=== PATIENT | male | born 1955 | race Two or more races ===

== ENCOUNTER 2022-08-14 14:10 | Emergency (ER) | payer MEDICARE, MEDICAID ==
[~2022-08-14] VITALS: Ht 180.3 cm; Wt 109.0 kg
[2022-08-14] MEDS ORDERED: ALLOPURINOL 100 MG TAB PO ONE (14:15)
[2022-08-14] MEDS ORDERED: LIDOCAINE 1% (LOCAL ANESTH.) PF 5ml SDV ID ONE (14:15)
[2022-08-14] MEDS ORDERED: HYDROcodone-ACET 10/325MG TAB PO ONE (14:30)
[2022-08-14 14:49] LABS: Basophils # (auto) 0.1 10 ^3/uL (0-0.2); Basophils % (auto) 0.7 % (0.0-2.0); Eosinophils # (auto) 0 10 ^3/uL (0-0.8); Eosinophils % (auto) 0.3 % (0.0-7.0); Hematocrit 37.9 % (41.0-53.0); Hemoglobin 12.4 g/dL (13.5-17.5); Lymphocytes # (auto) 1.8 10 ^3/uL (0.4-5.4); Lymphocytes % (auto) 18.7 % (10.0-50.0); Mean Corpuscular Hemoglobin 26.2 pg (28.0-32.0); Mean Corpuscular Hgb Conc. 32.7 g/dL (32.0-36.0); Mean Corpuscular Volume 80.2 fL (80.0-100.0); Monocytes # (auto) 0.9 10 ^3/uL (0-1.3); Monocytes % (auto) 9.1 % (0.0-12.0); Neutrophils # (auto) 6.8 10 ^3/uL (1.6-8.6); Neutrophils % (auto) 71.2 % (37.0-80.0); Nucleated Red Blood Cells % 0.1 %; Red Blood Cells 4.72 10^6/uL (4.5-5.90); White Blood Cell 9.5 10^3/uL (4.4-10.8)
[2022-08-14] MEDS ORDERED: LIDOCAINE 1% HCL (LOCAL ANESTH.) INJ 20ML MDV ONE (14:51)
[2022-08-14] MEDS ORDERED: LIDOCAINE 1% HCL (LOCAL ANESTH.) INJ 20ML MDV ID ONE (15:00)
[2022-08-14 15:06] LABS: Albumin 3.2 g/dL (3.4-5.0); Calcium 8.8 mg/dL (8.5-10.1); Potassium 3.8 mmol/L (3.5-5.1)
[2022-08-14 15:10] LABS: BUN/Creatinine Ratio 11.2 (10.0-20.0); Bilirubin, Total 0.6 mg/dL (0.2-1.0); Total Protein 7.6 g/dL (6.4-8.2); Uric Acid 10.1 mg/dL (3.5-7.2)
[2022-08-14] MEDS ORDERED: ALL300T PO (15:37)
[2022-08-14 16:18] VITALS: BP 160/66
== END 2022-08-14 16:22 | disposition home or self-care (01) ==
LOC: ER 14:10 → EDBD 14:10 → ER 16:22
DX: M10.9 Gout, unspecified (principal); M25.461 Effusion, right knee; F17.210 Nicotine dependence, cigarettes, uncomplicated
CPT/HCPCS: 20610; 29505; 36415; 80053; 84550; 85025; 99283; J2001

== ENCOUNTER 2022-08-18 13:25 | Emergency (ER) | payer MEDICARE, MEDICAID ==
[~2022-08-18] VITALS: Ht 180.3 cm; Wt 118.8 kg
[~2022-08-18 13:25] MED LIST: ALL300T PO
[2022-08-18 14:23] VITALS: BP 159/86
[2022-08-18] MEDS ORDERED: KETOROLAC TROMETH 60MG/2ML VIAL IM ONE (15:00)
[2022-08-18] MEDS ORDERED: DexAMETHasone SOD PHOS 10MG/1ML VIAL INJ IM ONE (15:00)
[2022-08-18] MEDS ORDERED: TRAM50TA2 PO (15:46)
[2022-08-18] MEDS ORDERED: PRED20TA2 PO (15:46)
== END 2022-08-18 15:55 | disposition home or self-care (01) ==
LOC: ER 13:25 → EDBD 13:25 → EDUNIT# 13:25 → ER 15:54
DX: M10.9 Gout, unspecified (principal); M17.11 Unilateral primary osteoarthritis, right knee; M25.461 Effusion, right knee; F17.210 Nicotine dependence, cigarettes, uncomplicated
CPT/HCPCS: 73562; 96372; 99284; J1100; J1885